=== PATIENT | male | born 1940 | race Caucasian/White ===

== ENCOUNTER 2016-11-14 13:23 | Observation (INO) | payer BC ==
--- NOTE | ~2016-11-14 | HP ---
History And Physical [place] [id number] [facility] [place]. [address] NAME: MONO BENITEZ JR : 42 STATUS : ADM Ivett PAT#: [id number] AGE: 76 ADM/REG DATE : 11/14/16 MR#: [id number] REPORT SERV DATE: 11/14/16 DICTATED BY: MANDEEP SANDERSON DATE: 11/14/16 REPORT STATUS : Draft TRANSCRIBED BY: MODL DATE: 11/14/16 DATE OF ADMISSION: 11/14/2016 REASON FOR ADMISSION: Left facial droop about 7 to 8 minutes with concomitant right leg weakness occurred around 10 a.m. this morning, per family 10 to 11 a.m. Primary care doctor is being switched from Dr. Fontaine to another physician per family. HISTORY OF PRESENT ILLNESS: This is a 76-year-old male, recently diagnosis Lewy body dementia for which the patient is on Aricept and Namenda, has Parkinson and apparently cannot receive anti-Parkinson medication as it will exacerbate Lewy body dementia per family. Known history of hyperlipidemia, coronary artery disease with a CABG x5, this was done several years ago as a result of hypertension, depression, constipation, agitation on Seroquel. The patient comes in after having his normal routine of effectively exercising on a machine at the local [facility] for nearly a mile from living at his assisted living facility at the [facility]. The patient was unable to finish his exercise, called the of his daughter to pick him up. Has some mild encephalopathy with increased altered mental status, was thought to have had about a 7 to 8 minutes episode of left facial droop, concomitant right leg weakness. The patient has had a mild cough recently. No fevers. No chills. No nausea. No vomiting. No diarrhea. No chest pressure. No chest pain. Positive shortness of breath. CT of the brain here just shows some leukoencephalopathy in the periventricular white matter leukoencephalopathy region with some cerebral atrophy. No acute stroke, hemorrhage, mass seen. REVIEW OF SYSTEMS: Done, see HPI. Otherwise, negative. PAST MEDICAL HISTORY/PAST SURGICAL HISTORY: See above including having unclear surgery for a bowel obstruction, CABG, PCI x2 in the past for NC, known history of Lewy body dementia as stated. ALLERGIES: MORE DRUG INTOLERANCE TO HALDOL AND GEODON. SOCIAL HISTORY: Does not drink, do drugs, or do alcohol. Did smoke less than 10 pack years in the past. FAMILY HISTORY: Hypertension at least one parent. OBJECTIVE: VITAL SIGNS: 133/65, 97.8 temp, 51 pulse, 16 respirations, 99% on room air. GENERAL: No acute distress. HEENT: PERRLA. No scleral icterus. CARDIOVASCULAR: Bradycardic. Otherwise, appears to be regular rhythm aside from History And Physical [address] [address] NAME: MONO BENITEZ JR : 42 STATUS : ADM Ivett PAT#: [id number] AGE: 76 ADM/REG DATE : 11/14/16 MR#: [id number] REPORT SERV DATE: 11/14/16 DICTATED BY: MANDEEP SANDERSON DATE: 11/14/16 REPORT STATUS : Draft TRANSCRIBED BY: SARATH DATE: 11/14/16 bradycardia. No murmur auscultated. No carotid bruit. RESPIRATORY: Clear to auscultation bilaterally. No wheezes. No crackles. ABDOMEN: Nontender, nondistended. Positive bowel sounds. EXTREMITIES: No edema. No ecchymosis. NEURO: He is A and O x2, does not know the current year. Unclear if that is his baseline. His tongue is midline. His face is symmetric. He appears to have 5/5 power in his bilateral upper and lower extremities. Equal sensation in his lower extremities to gloved finger touch. PSYCH: Unable to assess given neuro status. LABS: White count that is 5.6, hemoglobin 13.4, 146,000 platelets. 4.2 potassium, 26 bicarb, 1.13 creatinine, 17 BUN, 142 sodium, 82 sugar. INR 1.1. Urinalysis is clean. CT of the brain see above. EKG is got this appears to be junctional rhythm. Sinus mary ann at 56. Prolonged QTc 457. ASSESSMENT: 1. Transient ischemic attack, rule out. Has known atherosclerosis, likely could have cerebral atherosclerosis. 2. Inconsistent history of possible cerebrovascular phenomenon with left facial droop with right lower extremity weakness. Need to get MRI to rule out for any other pathology. Further, we could consider possible MRI of the spine. 3. Prerenal azotemia versus chronic kidney disease, 1.13 creatinine. 4. Lewy body dementia. 5. Debility. 6. History of Parkinson for which the patient apparently cannot get Parkinson directed therapy as well worsen Lewy body dementia per family. 7. History of coronary artery disease with coronary artery bypass graft. PLAN: Admit this patient under observation. Get an MRI of the brain and MRA. We will also get carotid ultrasound. We will also get an echo if not done in the last six months. Place on telemetry. If the patient, with repeat EKG, has a prolonged [place], could consider possible symptomatic bradycardia. Consider possible EP consultation. At this time, would hold any AV mahamed blocking agents for sure. Maximize his statin, give him aspirin 325, allow permissive hypertension for TIA, stroke rule out. We will check orthostasis with positive. Could consider repeat EKG and evaluate him for possible AV mahamed disease. See rest of my orders. All questions were answered. It took well over 60 minutes to do. We will place n.p.o. except medications and ice chips until speech evaluates the swallow function. ALEXANDRE/SARATH Mandeep Sanderson DO History And Physical [address] [address] NAME: MONO BENITEZ FIELD CHO : 42 STATUS : ADM Ivett PAT#: [id number] AGE: 76 ADM/REG DATE : 11/14/16 MR#: [id number] REPORT SERV DATE: 11/14/16 DICTATED BY: MANDEEP SANDERSON DATE: 11/14/16 REPORT STATUS : Draft TRANSCRIBED BY: SARATH DATE: 11/14/16 / [id number] CC: Mandeep Sanderson DO
--- NOTE | ~2016-11-14 | CN ---
Consultation Report [facility] [address] [place]. [address] NAME: MONO BENITEZ JR : 42 STATUS : ADM Ivett PAT#: [id number] AGE: 76 ADM/REG DATE : 11/14/16 MR#: [id number] REPORT SERV DATE: 11/16/16 DICTATED BY: DATE: REPORT STATUS : Draft TRANSCRIBED BY: MODL DATE: 11/16/16 NEUROLOGY CONSULTATION DATE OF CONSULTATION: 11/16/2016 REASON FOR CONSULT: Possible stroke. HISTORY OF PRESENT ILLNESS: This is a 76-year-old male who presented to [facility] on 11/14/2016. The patient's family noted the patient to have transient left facial droop as well as left lower extremity weakness. The patient was noted to have disorientation and difficulties providing history. The patient does have baseline dementia, for which the patient is on Aricept and Namenda. The patient was just finishing exercising at the time of symptom onset and was noted to have by family member to have left facial droop, as well as left lower extremity weakness with the patient noted to have mildly increased encephalopathy with the symptoms lasting roughly 7-8 minutes. Currently, the patient denies any dysarthria, dysphagia, language difficulties. No reports of recent illness, fever, chills, nausea, vomiting, chest pain, or shortness of breath was reported. No recent change in medication was otherwise reported. REVIEW OF SYSTEMS: Otherwise difficult to obtain secondary to the patient's mental status. PAST MEDICAL HISTORY: Significant for history of coronary artery bypass surgery as well as prior history of coronary artery disease, status post [place], as well as history of Lewy body dementia, for which the patient is on Aricept and Namenda. ALLERGIES: THE PATIENT WAS NOTED TO HAVE ALLERGY TO HALDOL AND GEODON. SOCIAL HISTORY: Denies tobacco, alcohol, or recreational drug usage with the patient noted to have distant history of tobacco usage. FAMILY HISTORY: Significant for hypertension. MEDICATIONS: At the time of evaluation, the patient was noted to have home medications that consist of aspirin, atorvastatin, Depakote, Aricept, Lexapro, lisinopril, Namenda, Metamucil, Seroquel, trazodone, and lorazepam. PHYSICAL EXAMINATION: VITAL SIGNS: Overnight, the patient was noted to have vital signs with T-max of 98.6, heart rate of 44 to 64, respirations of 16 to 24, and blood pressure of 107 to 136 over 56 to 82. GENERAL: The patient is well developed, well nourished, in no acute distress. CARDIOVASCULAR: Regular rate and rhythm. No carotid bruits were otherwise auscultated. PULMONARY: Clear to auscultation bilaterally. NEUROLOGIC: Generally, the patient is alert and oriented to person, place, but not to year Consultation Report [address] [place]. [address] NAME: MONO BENITEZ JR : 42 STATUS : ADM Ivett PAT#: [id number] AGE: 76 ADM/REG DATE : 11/14/16 MR#: [id number] REPORT SERV DATE: 11/16/16 DICTATED BY: DATE: REPORT STATUS : Draft TRANSCRIBED BY: MODRemi DATE: 11/16/16 or month. Followed simple and 2-step commands. Mild decreased attention span. Intact registration. Difficulty with recall. Cranial nerves 2 through 12. Pupils equal, round, and reactive to light. Extraocular eye movement was noted to be intact. No clear nystagmus was seen. Intact etkyv-zf-auqzug response. Symmetrical facial expression and sensation. Midline tongue. Normal palatal movement. Mild decreased hearing in bilateral ears. 5/5 bilateral upper and lower extremity strength. No clear tremor was seen in bilateral upper extremity and minimal rigidity was noted in bilateral upper extremities. Deep tendon reflex was 2+ throughout. Downgoing toe on bilateral plantar reflexes. Otherwise normal finger-to nose examination without ataxia. Normal station. Normal gait. LABORATORY STUDIES: Demonstrated white blood cell count of 3.7, hemoglobin of 12.6, hematocrit of 37.1, platelet count of 129. Chemistry panel; sodium 145, potassium 4.2, chloride 108, bicarb of 28, BUN of 17, creatinine 1.05, glucose of 105, calcium of 8.4, magnesium of 2.0. Urinalysis demonstrated negative leukocyte esterase, negative nitrite. CT scan of the brain otherwise demonstrated no acute process with MRI of the brain demonstrating no acute process. The patient's MRA of the head demonstrated atherosclerotic changes in the left carotid and diffuse atherosclerotic change in the right MCA. Carotid Doppler study demonstrated no significant stenosis. Echocardiogram otherwise demonstrated no apical thrombus. IMPRESSION: Transient ischemic attack with left hemiparesis occurring on 11/14/2016, lasting several minutes per hospital admission H and P, otherwise no focal deficits at this time except for some cognitive deficit consistent with the patient's diagnosis of dementia. We will check fasting lipid panel and Plavix 75 mg p.o. daily for maximizing medical therapy, otherwise okay to discharge in the morning after fasting lipid panel. RECOMMENDATION: 1. Continue aspirin and Lipitor. 2. Start the patient on Plavix 75 mg p.o. daily. 3. Fasting lipid panel in the morning. 4. Okay to discharge the patient from a Neuro standpoint after patient's fasting lipid panel in the morning. [facility]/MODL Addi Moran MD / [id number] CC: Sara Vargas MD
--- NOTE | ~2016-11-14 | CN ---
Consultation Report [place] [address] [place]. [address] NAME: MONO CASTILLO JR : 42 STATUS : ADM Ivett PAT#: [id number] AGE: 76 ADM/REG DATE : 11/14/16 MR#: [id number] REPORT SERV DATE: 11/15/16 DICTATED BY: STEPHEN LEE DATE: 11/15/16 REPORT STATUS : Draft TRANSCRIBED BY: MODL DATE: 11/15/16 CARDIOLOGY CONSULT DATE OF CONSULTATION: 11/15/2016 CONSULTATION REASON: Bradycardia. 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 Salguero. HISTORY OF PRESENT ILLNESS: Mr. Castillo is a 76-year-old male with known coronary artery disease, prior coronary bypass grafting, and chronic sinus bradycardia (heart rate typically 45 to 50) who presented to the ER with transient dysarthria, left facial droop, and right lower extremity weakness concerning for TIA. Symptoms lasted approximately 10 minutes and ultimately spontaneous resolved. He has had no chest pain/angina. He denies exertional shortness of breath. He has had no palpitations. He has had no near syncope or syncope. He does have some chronic generalized fatigue that is unchanged for him. On telemetry monitoring, he has had a heart rate of 45 to 50. An echocardiogram was obtained with an EF of 45% to 50%, last assessed in 2014 with an EF of 43%. He is currently resting in bed with no complaints. PAST MEDICAL HISTORY: 1. CAD, status post CABG. 2. Hypertension. 3. Hyperlipidemia. 4. Chronic sinus bradycardia. 5. Ischemic cardiomyopathy, EF 45%. MEDICATIONS: His current home medications are, 1. Aspirin 81 mg daily. 2. Atorvastatin 20 mg q.h.s. 3. Lisinopril 5 mg daily. 4. Seroquel as directed. 5. Trazodone 50 mg q.h.s. 6. Ativan p.r.n. 7. Namenda 5 mg twice daily. 8. Lexapro 10 mg daily. 9. Aricept 5 mg q.h.s. 10.Depakote 250 mg twice daily. ALLERGIES: INCLUDE GEODON WHICH CAUSED ALTERED MENTAL STATUS AND "BANANA BAG," IV FLUIDS WITH AN UNKNOWN REACTION. SOCIAL HISTORY: He does not use tobacco products, consume alcohol, or illegal drugs. Consultation Report [facility] [address] [place]. [address] NAME: MONO CASTILLO JR : 42 STATUS : ADM Ivett PAT#: [id number] AGE: 76 ADM/REG DATE : 11/14/16 MR#: [id number] REPORT SERV DATE: 11/15/16 DICTATED BY: SETPHEN LEE DATE: 11/15/16 REPORT STATUS : Draft TRANSCRIBED BY: SARATH DATE: 11/15/16 FAMILY HISTORY: Significant for CAD. PHYSICAL EXAMINATION: VITALS: Temp is afebrile, Pulse is 45, Respirations 16, BP is 150/70. MENTAL STATUS: Awake, alert, and oriented x3. PSYCH: Euthymic, normal affect. GENERAL: Well appearing and in no distress. HEENT: Sclerae anicteric, mucous membranes moist and without lesions. NECK: No jugular venous distention. No hepatojugular reflux, carotid upstrokes 2+ and symmetric, there are no carotid or subclavian bruit. LUNGS: Clear to auscultation without wheezes, crackles, or rales. CARDIOVASCULAR: Regular with normal S1 and S2, no murmurs, no S3 or S4, no parasternal lift, PMI is nondisplaced and nonsustained. ABDOMEN: Soft and nontender. Bowel sounds positive and normoactive. No hepatomegaly, no masses, no abdominal bruit. PULSES: Radial and dorsalis pedis pulses 2+ and symmetric. EXTREMITIES: Warm and without edema. SKIN: No clubbing or cyanosis, no rashes or lesions. IMPRESSION: 1. Bradycardia. 2. Premature ventricular contractions. 3. Coronary artery disease, status post coronary artery bypass graft. 4. Ischemic cardiomyopathy, ejection fraction 45% to 50%. 5. Hypertension. 6. Hyperlipidemia. 7. Transient ischemic attack. PLAN: Mr. Castillo has sinus bradycardia and a mild ischemic cardiomyopathy with a mildly reduced LVEF that appear chronic. His sinus bradycardia and heart rate in the 40s that have been previously documented on multiple office visits. His signs and symptoms of presentation were more consistent with TIA. He has had no symptoms of bradycardia such as dizziness, near syncope, or syncope. Avoid beta blockers. We will follow with you. No permanent pacemaker anticipated at this time. WENDY/SARATH Stephen Lee M.D. / [id number] Consultation Report [place] [address] [address] NAME: MONO CASTILLO : 42 STATUS : ADM Ivett PAT#: [id number] AGE: 76 ADM/REG DATE : 11/14/16 MR#: [id number] REPORT SERV DATE: 11/15/16 DICTATED BY: STEPHEN LEE. DATE: 11/15/16 REPORT STATUS : Draft TRANSCRIBED BY: MODL DATE: 11/15/16 CC: Sara Vargas MD
--- NOTE | ~2016-11-14 | DS ---
Discharge Summary [facility] [address] [facility] [place]. [address] NAME: MONO BENITEZ JR : 42 STATUS : DIS Ivett PAT#: [id number] AGE: 76 ADM/REG DATE : 11/14/16 MR#: [id number] REPORT SERV DATE: 11/17/16 DICTATED BY: JOLANTA ARAGON DATE: 11/16/16 REPORT STATUS : Draft TRANSCRIBED BY: SARATH DATE: 11/16/16 ADMISSION DATE: 11/14/2016 DISCHARGE DATE: 11/16/2016 DISCHARGE DIAGNOSES: 1. Transient ischemic attack. 2. Bradycardia. 3. History of Parkinson/Lewy body dementia. 4. Coronary artery disease. 5. Chronic systolic heart failure. 6. Chronic kidney disease stage 3. DISCHARGE MEDICATIONS: Include: 1. Aspirin 81 mg p.o. daily. 2. Lipitor 80 mg p.o. at bedtime. 3. Plavix 75 mg p.o. daily. 4. Depakote 250 mg p.o. b.i.d. 5. Aricept 5 mg p.o. at bedtime. 6. Lexapro 10 mg p.o. daily. 7. Namenda 5 mg p.o. b.i.d. 8. Metamucil packet p.o. b.i.d. 9. Seroquel 25 mg at 12. 10.Seroquel 100 mg p.o. b.i.d. 11.Trazodone 50 mg p.o. at bedtime. 12.Lisinopril 5 mg p.o. daily. 13.Lorazepam 1 mg p.o. every six hours p.r.n. DISPOSITION AND FOLLOWUP: The patient medically stable for discharge. Follow up per primary care physician in one week. HISTORY AND PHYSICAL: Per initial assessment. DISCHARGE VITALS: Temperature 98.3, heart rate 55, blood pressure 134/65, respiratory rate 20, O2 saturation 93 on room air.. DISCHARGE LABORATORY DATA: WBC of 3.7, hemoglobin 12.6, hematocrit 37.1, platelets 129. Sodium 145, potassium 4.2, chloride 108, bicarb 24, BUN 17, creatinine 1.05. Troponin less than 0.02. TSH 1.77, hemoglobin A1c of 5.3. LDL pending. IMAGES: 1. CT of the head without contrast, impression:. a. Moderate cerebral atrophy with periventricular leukoencephalopathy. b. Bilateral frontal lobe atrophy. c. Intracranial atherosclerosis. 2. Carotid, impression, carotids demonstrate category 1 less than 50% luminal stenosis. 3. Chest x-ray, impression, stable appearance of the chest with prior CABG and mild Discharge Summary [place] [address] [place]. [address] NAME: MONO BENITEZ JR : 44 STATUS : DIS Ivett PAT#: [id number] AGE: 76 ADM/REG DATE : 11/14/16 MR#: [id number] REPORT SERV DATE: 11/17/16 DICTATED BY: JOLANTA ARAGON DATE: 11/16/16 REPORT STATUS : Draft TRANSCRIBED BY: SARATH DATE: 11/16/16 cardiomegaly. No acute process. 4. MRI, MRA, impression, evidence for atherosclerotic changes in the left carotid siphon M2 portion MCA. More diffuse atherosclerotic changes identified in the right MCA M1 and M2 segments. 5. MRA, MRI of the brain, impression, no acute infarct, bleed, or mass seen. Moderate generalized atrophy. Small vessel ischemic disease. HOSPITAL COURSE: The patient was admitted for further management of left hemiparesis, which lasted several minutes. TIA order set was used. Neurology was consulted. Had Neurology consult as described. Recommended continue aspirin. Increase Lipitor to 80 mg. Added Plavix 75 mg p.o. daily. The patient was evaluated by Cardiology for bradycardia. Known bradycardia, asymptomatic. No further management. No AV mahamed medications. Instructed to take all medications as described above. The patient medically stable for discharge. Total time for discharge planning, 35 minutes. RLKarthik/SARATH Sara Vargas MD / [id number] CC: Sara Vargas MD
[2016-11-14 13:07] LABS: BASOPHILS 0.4 %; BASOPHILS ABSOLUTE 0.02 10/3/uL (0.0-0.16); EOSINOPHILS ABSOLUTE 0.11 10/3/uL (0.0-0.53); HEMATOCRIT 38.7 % (40.0-51.0); HEMOGLOBIN 13.4 g/dL (13.6-17.8); LYMPHOCYTES 16.3 %; LYMPHOCYTES ABSOLUTE 0.92 10/3/uL (0.67-4.30); MEAN CORPUS HGB CONC 34.6 g/dL (32.0-36.0); MEAN CORPUSCULAR HEMOGLOB 28.8 pg (26.0-34.0); MEAN CORPUSCULAR VOLUME 83.2 fL (80-100); MEAN PLATELET VOLUME 9.4 fL (9.2-13.0); MONOCYTES 10.3 %; MONOCYTES ABSOLUTE 0.58 10/3/uL (0.21-1.20); NEUTROPHILS ABSOLUTE 4.01 10/3/uL (2.02-8.40); RBC DISTRIBUTION WIDTH 13.7 % (12.0-16.0); RED CELL COUNT 4.65 10/6/uL (4.7-6.1); WHITE BLOOD CELLS 5.6 10/3/uL (4.5-10.5)
[2016-11-14 13:09] LABS: MANUAL DIFF NO %; PLATELET COUNT 146 10/3/uL (150-400)
[2016-11-14 13:14] LABS: INTERNATIONAL NORMAL RATI 1.1 UNITS (-); PARTIAL THROMBO TIME 27.5 SEC (22.5-37.2); PROTIME (NOT ORD) 14.3 SEC (12.0-14.5)
[2016-11-14 13:16] LABS: ASCORBIC ACID (UR NOT ORDER) NEG (NEG); BILIRUBIN, URINE NEGATIVE (NEG); ER URINALYSIS TAT 0 Hrs 15 Mins; KETONE, URINE NEGATIVE (NEG); LEUKOCYTE ESTERASE(NOT OR NEG (NEG); NITRITE (URINE) NEG (NEG); WBC (NOT ORDERED) (RFLEX) 1 (0-5)
[2016-11-14 13:23] LABS: A/G RATIO 1.3 (0.7-1.9); ALBUMIN 3.7 G/DL (3.5-5.0); ALKALINE PHOSPHATASE 77 U/L (45-117); BUN (BLOOD UREA NITROGEN) 17 MG/DL (6-23); CALCIUM, SERUM 8.7 MG/DL (8.5-10.4); CHLORIDE, SERUM 106 MMOL/L (96-112); CO2 (CARBON DIOXIDE) 26 MMOL/L (24-34); CREATININE 1.13 MG/DL (0.70-1.30); GFR AFRICAN AMERICAN 74 ML/MIN (>=60); GFR NON AFRICAN AMERICAN 64 ML/MIN (>=60); GLOBULIN 2.9 G/DL (2.5-4.1); GLUCOSE, SERUM 82 MG/DL (60-99); POTASSIUM, SERUM 4.2 MMOL/L (3.5-5.3); SGOT(AST) 21 U/L (5-40); SGPT(ALT) 25 U/L (5-65); SODIUM, SERUM 142 MMOL/L (135-148); TOTAL BILIRUBIN 0.6 MG/DL (0-1.2); TOTAL PROTEIN 6.6 G/DL (6.0-8.5); TROPONIN I <0.02 NG/ML (<0.05)
[~2016-11-14 13:23] MED LIST: *UNABLE1; ANUSOL HC SUPP1 SUPP PR; ARICEPT ODT5 MG PO; ARICEPT5 PO; ASA5GR PO; ASAB PO; HALF81 PO; LEXAPRO10 PO; LIPITOR20 PO; METAMUCIL CAN7 OZ PO; MOBIC7.5 PO; NAMENDA5 PO; NAMZARIC 28 MG1 EACH PO; PLAVIX PO; PRAVACHOL80 MG PO; PRIN5 PO; SEROQUEL25 PO; TRAZ50 PO; ULTRAM50 PO
[2016-11-14] MEDS ORDERED: LEXAPRO10 PO (15:02)
[2016-11-14] MEDS ORDERED: HALF81 PO (15:02)
[2016-11-14] MEDS ORDERED: SEROQUEL25 PO (15:03)
[2016-11-14] MEDS ORDERED: PRIN5 PO (15:03)
[2016-11-14] MEDS ORDERED: SEROQUEL1C PO (15:03)
[2016-11-14] MEDS ORDERED: NAMENDA5 PO (15:03)
[2016-11-14] MEDS ORDERED: TRAZ50 PO (15:04)
[2016-11-14] MEDS ORDERED: METPAKSF PO (15:04)
[2016-11-14] MEDS ORDERED: ARICEPT5 PO (15:05)
[2016-11-14] MEDS ORDERED: DEPAKOT250 PO (15:05)
[2016-11-14] MEDS ORDERED: LIPITOR20 PO (15:05)
[2016-11-14] MEDS ORDERED: LORAZEPAM TOP (15:07)
[2016-11-15 04:20] LABS: BASOPHILS 0.5 %; BASOPHILS ABSOLUTE 0.02 10/3/uL (0.0-0.16); EOSINOPHILS 4.4 %; EOSINOPHILS ABSOLUTE 0.18 10/3/uL (0.0-0.53); HEMATOCRIT 38.3 % (40.0-51.0); IMMATURE GRANULOCYTES 0.2 %; IMMATURE GRANULOCYTES ABSOLUTE 0.01 10/3/uL (0.0-0.11); LYMPHOCYTES 26.7 %; LYMPHOCYTES ABSOLUTE 1.08 10/3/uL (0.67-4.30); MEAN CORPUS HGB CONC 33.9 g/dL (32.0-36.0); MEAN CORPUSCULAR HEMOGLOB 28.6 pg (26.0-34.0); MEAN CORPUSCULAR VOLUME 84.2 fL (80-100); MEAN PLATELET VOLUME 9.3 fL (9.2-13.0); MONOCYTES 11.6 %; MONOCYTES ABSOLUTE 0.47 10/3/uL (0.21-1.20); NEUTROPHILS 56.6 %; NEUTROPHILS ABSOLUTE 2.29 10/3/uL (2.02-8.40); PLATELET COUNT 139 10/3/uL (150-400); RED CELL COUNT 4.55 10/6/uL (4.7-6.1); WHITE BLOOD CELLS 4.1 10/3/uL (4.5-10.5)
[2016-11-15 04:24] LABS: MANUAL DIFF NO %
[2016-11-15 04:34] LABS: A/G RATIO 1.3 (0.7-1.9); ALBUMIN 3.4 G/DL (3.5-5.0); ALKALINE PHOSPHATASE 78 U/L (45-117); CALCIUM, SERUM 8.3 MG/DL (8.5-10.4); CHLORIDE, SERUM 110 MMOL/L (96-112); CO2 (CARBON DIOXIDE) 28 MMOL/L (24-34); CREATININE 1.05 MG/DL (0.70-1.30); GFR AFRICAN AMERICAN 81 ML/MIN (>=60); GFR NON AFRICAN AMERICAN 70 ML/MIN (>=60); GLOBULIN 2.6 G/DL (2.5-4.1); PHOSPHORUS, SERUM 3.5 MG/DL (2.5-4.5); SGOT(AST) 19 U/L (5-40); SGPT(ALT) 21 U/L (5-65); SODIUM, SERUM 146 MMOL/L (135-148); TOTAL BILIRUBIN 0.4 MG/DL (0-1.2)
[2016-11-15 04:35] LABS: BUN (BLOOD UREA NITROGEN) 21 MG/DL (6-23); GLUCOSE, SERUM 115 MG/DL (60-99)
[2016-11-15 05:01] LABS: B NATRIURETIC PEPTIDE (BNP) 172.4 PG/ML (< 100.0)
[2016-11-15 12:53] LABS: GLYCOHEMOGLOBIN (HbA1c) 5.3 % (4.7-6.1)
[2016-11-16 06:01] LABS: BASOPHILS 0.5 %; BASOPHILS ABSOLUTE 0.02 10/3/uL (0.0-0.16); EOSINOPHILS 5.1 %; EOSINOPHILS ABSOLUTE 0.19 10/3/uL (0.0-0.53); HEMATOCRIT 37.1 % (40.0-51.0); HEMOGLOBIN 12.6 g/dL (13.6-17.8); IMMATURE GRANULOCYTES 0.3 %; IMMATURE GRANULOCYTES ABSOLUTE 0.01 10/3/uL (0.0-0.11); LYMPHOCYTES 25.5 %; LYMPHOCYTES ABSOLUTE 0.95 10/3/uL (0.67-4.30); MEAN CORPUSCULAR HEMOGLOB 28.6 pg (26.0-34.0); MEAN CORPUSCULAR VOLUME 84.3 fL (80-100); MEAN PLATELET VOLUME 9.3 fL (9.2-13.0); MONOCYTES 12.9 %; MONOCYTES ABSOLUTE 0.48 10/3/uL (0.21-1.20); NEUTROPHILS 55.7 %; NEUTROPHILS ABSOLUTE 2.07 10/3/uL (2.02-8.40); PLATELET COUNT 129 10/3/uL (150-400); WHITE BLOOD CELLS 3.7 10/3/uL (4.5-10.5)
[2016-11-16 06:12] LABS: MANUAL DIFF NO %
[2016-11-16 06:17] LABS: CALCIUM, SERUM 8.4 MG/DL (8.5-10.4); CHLORIDE, SERUM 108 MMOL/L (96-112); CO2 (CARBON DIOXIDE) 28 MMOL/L (24-34); CREATININE 1.05 MG/DL (0.70-1.30); GFR AFRICAN AMERICAN 81 ML/MIN (>=60); GFR NON AFRICAN AMERICAN 70 ML/MIN (>=60); GLUCOSE, SERUM 105 MG/DL (60-99); PHOSPHORUS, SERUM 3.4 MG/DL (2.5-4.5); POTASSIUM, SERUM 4.2 MMOL/L (3.5-5.3); SODIUM, SERUM 145 MMOL/L (135-148)
[2016-11-16 06:18] LABS: BUN (BLOOD UREA NITROGEN) 17 MG/DL (6-23)
[2016-11-16] MEDS ORDERED: PLAVIX PO (19:54)
[2016-11-16] MEDS ORDERED: SEROQUEL25 PO (19:59)
[2017-03-28] MEDS ORDERED: DEX2 PO (18:13)
[2017-03-28] MEDS ORDERED: ASAB PO (18:13)
[2017-03-28] MEDS ORDERED: [UNRECOGNIZED DRUG - SUPPLY] TOP (18:16)
[2017-03-28] MEDS ORDERED: MIRALAX POWDER1 PKT PO (18:16)
[2017-03-28] MEDS ORDERED: SEROQUEL1C PO (18:17)
[2017-03-28] MEDS ORDERED: NAMENDA5 PO (18:18)
[2017-03-28] MEDS ORDERED: REMERON45 MG PO (18:19)
[2017-03-28] MEDS ORDERED: PRIN5 PO (18:19)
[2017-03-28] MEDS ORDERED: ARICEPT5 PO (18:19)
[2017-03-28] MEDS ORDERED: PLAVIX PO (18:19)
[2017-03-28] MEDS ORDERED: DEPAKOT250 PO (18:19)
[2017-03-28] MEDS ORDERED: ATV1 PO (18:20)
[2017-03-28] MEDS ORDERED: LIPITOR80 MG PO (18:20)
[2017-03-28] MEDS ORDERED: T PO (18:21)
[2017-04-01] MEDS ORDERED: DEPAKOT250 (15:28)
[2017-04-01] MEDS ORDERED: COREG3 PO (15:30)
[2017-04-01] MEDS ORDERED: DURICEF PO (15:31)
[2017-04-01] MEDS ORDERED: DEPAKOT500 (15:33)
[2017-04-01] MEDS ORDERED: MULTIPLE VIT PO (15:37)
[2017-04-01] MEDS ORDERED: MEGACEUDL PO (15:41)
[2017-04-01] MEDS ORDERED: SEROQUEL25 PO (15:46)
== END 2016-11-16 20:18 | disposition home or self-care (01) ==
LOC: ER 13:23 → CDU1 16:28 → CDU2 20:11
PROVIDERS: Emergency Medicine; Internal Medicine
DX: G45.9 Transient cerebral ischemic attack, unspecified (principal); I25.10 Atherosclerotic heart disease of native coronary artery without angina pectoris; I50.22 Chronic systolic (congestive) heart failure; N18.3 Chronic kidney disease, stage 3 (moderate); F17.210 Nicotine dependence, cigarettes, uncomplicated; Z79.82 Long term (current) use of aspirin; Z79.02 Long term (current) use of antithrombotics/antiplatelets; Z79.899 Other long term (current) drug therapy; Z95.1 Presence of aortocoronary bypass graft; Z88.8 Allergy status to other drugs, medicaments and biological substances; Z82.49 Family history of ischemic heart disease and other diseases of the circulatory system
CPT/HCPCS: 70450; 70544; 70553; 71010; 80048; 80053; 81001; 82962; 83036; 83735; 83880; 84100; 84443; 84484; 85025; 85610; 85730; 92610-GN; 93005; 93880; 96372; 96374; 97161-GP; 97165-GO; 99285; A9270-GY; A9577; C8929; G0378; J1170; Q9957